=== PATIENT | female | born 1935 | race Caucasian/White ===

== ENCOUNTER 2018-06-05 13:35 | Inpatient (IN) | payer OTHER ==
--- NOTE | 2018-06-05 13:43 | EDPHY ---
H & P Time Seen by Provider: 06/05/18 13:40 HPI/ROS: CHIEF COMPLAINT: Left hip pain HISTORY OF PRESENT ILLNESS: 82-year-old female presents with left hip pain. She was hiking this morning, slipped and fell landing on her left hip. Immediate onset of severe left hip pain and inability to bear weight. She was eventually found by lavonne, who called 911. On EMS arrival, she was given fentanyl 50 mcg IV with significant relief in pain. She currently has moderate left hip pain. Denies other injuries. She did not hit her head; no headache or neck pain. Last food intake was at breakfast. Last fluid intake at noon. REVIEW OF SYSTEMS: complete 10 point ROS negative except as noted in the HPI - Physical Exam Exam: General Appearance: Alert, pleasant Head: Atraumatic Eyes: No conjunctival erythema, PERRLA, EOMI ENT, Mouth: no oral trauma, no bony tenderness Neck: Nontender, range of motion without pain Respiratory: No chest wall tenderness, lungs clear bilaterally Cardiovascular: Regular rate and rhythm Abdomen: Abdomen is soft and nontender Skin: No lacerations, no abrasions Back: No midline T/L/S tenderness Extremities: Pelvis is stable and nontender; left hip tenderness and swelling, pain with hip range of motion, left foot is externally rotated Vascular: Pedal pulses 2+ Neurological: A&Ox3, normal motor function, normal sensory exam, cranial nerves intact Psychiatric: Mood and affect normal Constitutional: Initial Vital Signs Temperature (C) 36.7 C 06/05/18 13:52 Heart Rate 84 06/05/18 13:52 Respiratory Rate 16 06/05/18 13:52 Blood Pressure 176/71 H 06/05/18 13:52 O2 Sat (%) 98 06/05/18 13:52 O2 Delivery Mode Room Air O2 (L/minute) 2 Allergies/Adverse Reactions: tree nut [Nuts] Allergy (Verified 06/05/18 13:57) Home Medications: Medication Instructions Recorded NK [No Known Home Meds] 06/05/18 Medical Decision Making - Diagnostics Imaging Results: Imaging Impressions Chest X-Ray 06/05/18 13:39 Impression: Negative. 2. Left Hip, 2 views History: Fall today. Pain. Findings: There is an acute intertrochanteric left hip fracture without significant angulation or displacement. The pelvic ring is intact. The SI joints pubic symphysis and right hip joint look normal. The bones appear of relatively low bone density. There is degenerative change of the L4-L5 disk space. Impression: 1. Left intertrochanteric hip fracture. 2. Possible osteoporosis. This patient might benefit from a DEXA scan. 3. Left Femur, 2 views of the lower femur History: Pain post fall today Findings: The distal femur is normal. The knee joint is grossly normally aligned. There is chondrocalcinosis of the medial meniscus. Impression: Nothing acute identified in the lower femur. Femur X-Ray 06/05/18 13:39 Impression: Negative. 2. Left Hip, 2 views History: Fall today. Pain. Findings: There is an acute intertrochanteric left hip fracture without significant angulation or displacement. The pelvic ring is intact. The SI joints pubic symphysis and right hip joint look normal. The bones appear of relatively low bone density. There is degenerative change of the L4-L5 disk space. Impression: 1. Left intertrochanteric hip fracture. 2. Possible osteoporosis. This patient might benefit from a DEXA scan. 3. Left Femur, 2 views of the lower femur History: Pain post fall today Findings: The distal femur is normal. The knee joint is grossly normally aligned. There is chondrocalcinosis of the medial meniscus. Impression: Nothing acute identified in the lower femur. Hip X-Ray 06/05/18 13:39 Impression: Negative. 2. Left Hip, 2 views History: Fall today. Pain. Findings: There is an acute intertrochanteric left hip fracture without significant angulation or displacement. The pelvic ring is intact. The SI joints pubic symphysis and right hip joint look normal. The bones appear of relatively low bone density. There is degenerative change of the L4-L5 disk space. Impression: 1. Left intertrochanteric hip fracture. 2. Possible osteoporosis. This patient might benefit from a DEXA scan. 3. Left Femur, 2 views of the lower femur History: Pain post fall today Findings: The distal femur is normal. The knee joint is grossly normally aligned. There is chondrocalcinosis of the medial meniscus. Impression: Nothing acute identified in the lower femur. Imaging: I viewed and interpreted images myself ED Course/Re-evaluation: This pt presents with left hip pain, consistent with likely hip fracture. No other injuries on exam. Morphine 4 mg IV given with adequate pain relief. Xray reveals a left intratrochanteric hip fracture. Hospitalist service was consulted for admission. Dr. Jefferson was consulted and will see the pt in the ED. PT NPO throughout ED stay. Went directly to OR. Differential Diagnosis: Differential diagnosis includes though it is not limited to fracture, intracranial hemorrhage, pneumothorax, hemothorax, intra-abdominal hemorrhage. - Data Points Laboratory Results: Laboratory Results 06/05/18 14:40 06/05/18 14:40 06/05/18 06/05/18 14:40 14:40 WBC REJ RBC REJ Hgb REJ Hct REJ MCV REJ MCH REJ MCHC REJ RDW REJ Plt Count REJ MPV REJ Neut % (Auto) REJ Lymph % (Auto) REJ Plumas % (Auto) REJ Eos % (Auto) REJ Baso % (Auto) REJ Nucleat RBC Rel Count REJ Absolute Neuts (auto) REJ Absolute Lymphs (auto) REJ Absolute Monos (auto) REJ Absolute Eos (auto) REJ Absolute Basos (auto) REJ Absolute Nucleated RBC REJ Immature Gran % REJ Immature Gran # REJ Sodium 133 mEq/L L mEq/L (135-145) Potassium 4.9 mEq/L mEq/L (3.5-5.2) Chloride 102 mEq/L mEq/L (97-110) Carbon Dioxide 21 mEq/l L mEq/l (22-31) Anion Gap 10 mEq/L mEq/L (6-14) BUN 17 mg/dL mg/dL (7-23) Creatinine 0.7 mg/dL mg/dL (0.6-1.0) Estimated GFR > 60 Glucose 105 mg/dL H mg/dL (70-100) Calcium 10.1 mg/dL mg/dL (8.5-10.4) Specimen Hemolysis 123 Medications Given: Morphine Sulfate (Morphine) 4 mg IVP Q1H PRN PRN Reason: Pain, Severe Unable to Take PO Last Admin: 06/05/18 14:10 Dose: 4 mg Discontinued Medications Famotidine (Pepcid) 20 mg PO ONCALL ONE Stop: 06/05/18 15:43 Last Admin: 06/05/18 16:19 Dose: 20 mg Cefazolin Sodium/Dextrose (Ancef) 100 mls @ 200 mls/hr IV ONCALL ONE PRN Reason: Protocol Stop: 06/05/18 16:11 Last Admin: 06/05/18 16:33 Dose: 100 mls Tranexamic Acid 1,000 mg/ (Sodium Chloride) 110 mls @ 660 mls/hr IV ONCALL ONE Stop: 06/05/18 15:51 Last Admin: 06/05/18 17:14 Dose: 110 mls Departure - Departure Disposition: [facility] Inpatient Acute Clinical Impression: Fracture of left hip Qualifiers: Encounter type: initial encounter Fracture type: closed Qualified Code(s): S72.002A - Fracture of unspecified part of neck of left femur, initial encounter for closed fracture Condition: Fair
[2018-06-05] MEDS ORDERED: ONDANSETRON 4 MG/2 ML VIAL ONE ×2 (14:08→16:26)
[2018-06-05] MEDS ORDERED: ONDANSETRON DISINTEGRATING 4 MG TAB PO PRN (15:31)
[2018-06-05] MEDS ORDERED: ONDANSETRON 4 MG/2 ML VIAL IVP PRN ×2 (15:31→17:12)
[2018-06-05] MEDS ORDERED: HYDROmorphONE/DILAUDID 1 MG/ML INJ IVP PRN (15:31)
--- NOTE | 2018-06-05 15:38 | PDGENHP ---
History and Physical - Chief Complaint Mechanical fall w/injury - History of Present Illness 82 y/o female who is relatively healthy presents w/ left hip pain. [facility] where she encountered uneven terrain and slipped, landing directly on her left hip. She did not hit her head, no LOC. She immediately experienced pain and was unable to bear weight on her leg. She was brought in by ambulance. Imaging revealing left intertrochanteric hip fracture. She will undergo surgical intervention today. Denies CP, palpitations, nausea, SOB, fever or chills. History Information - Allergies/Home Medication List Allergies/Adverse Reactions: tree nut [Nuts] Allergy (Verified 06/05/18 13:57) Home Medications: NK [No Known Home Meds] 06/05/18 [Last Taken Unknown] I have personally reviewed and updated: family history, medical history, social history, surgical history - Past Medical History no pertinent PMH Additional medical history: Hodgkin's (at age ~30). Breast cancer () - Surgical History Reports: cancer surgery (For Hodgkin's disease in her 30s.), mastectomy (Left (~ )) - Family History Positive for: non-pertinent - Social History Smoking Status: Never smoked Alcohol Use: Occasionally (A glass of wine/night) Drug Use: None Additional social history: Very active, lives independently. Loves to hiLivekick and Surgient. Daughter lives in [place] and was at bedside. Review of Systems Review of Systems: ROS: 10pt was reviewed & negative except for what was stated in HPI & below Physical Exam Physical Exam: Lab data and imaging were reviewed. WBC: 11.49 Na: 133 BUN/Cr: 17/0.7 CXR: negative Temp Pulse Resp BP Pulse Ox 36.7 C 84 16 176/71 H 95 06/05/18 13:52 06/05/18 13:52 06/05/18 13:52 06/05/18 13:52 06/05/18 14:29 Constitutional: uncomfortable Eyes: PERRL, anicteric sclera, EOMI Ears, Nose, Mouth, Throat: moist mucous membranes, hearing normal, ears appear normal, no oral mucosal ulcers Cardiovascular: regular rate and rhythym, no murmur, rub, or gallop, No edema Peripheral Pulses: 2+: dorsalis-pedis (R) (Radial 2+), dorsalis-pedis (L) ( Radial 2+) Respiratory: no respiratory distress, no rales or rhonchi, clear to auscultation Gastrointestinal: normoactive bowel sounds, soft, non-tender abdomen, no palpable masses Genitourinary: no bladder fullness, no bladder tenderness Skin: abrasion (Left forearm/elbow) Musculoskeletal: pain with ROM (LLE, able to wiggle toes, +DF/PF and continues to have full sensation) Neurologic: AAOx3, sensation intact bilaterally, CN II-XII Intact Psychiatric: interacting appropriately, not anxious, not encephalopathic, thought process linear Lymph, Heme, Immunologic: no cervical LAD, no supraclavicular LAD Lab Data & Imaging Review 06/05/18 15:35 06/05/18 14:40 WBC REJ 06/05/18 14:40 RBC REJ 06/05/18 14:40 Hgb REJ 06/05/18 14:40 Hct REJ 06/05/18 14:40 MCV REJ 06/05/18 14:40 MCH REJ 06/05/18 14:40 MCHC REJ 06/05/18 14:40 RDW REJ 06/05/18 14:40 Plt Count REJ 06/05/18 14:40 MPV REJ 06/05/18 14:40 Neut % (Auto) REJ 06/05/18 14:40 Lymph % (Auto) REJ 06/05/18 14:40 Plumas % (Auto) REJ 06/05/18 14:40 Eos % (Auto) REJ 06/05/18 14:40 Baso % (Auto) REJ 06/05/18 14:40 Nucleat RBC Rel Count REJ 06/05/18 14:40 Absolute Neuts (auto) REJ 06/05/18 14:40 Absolute Lymphs (auto) REJ 06/05/18 14:40 Absolute Monos (auto) REJ 06/05/18 14:40 Absolute Eos (auto) REJ 06/05/18 14:40 Absolute Basos (auto) REJ 06/05/18 14:40 Absolute Nucleated RBC REJ 06/05/18 14:40 Immature Gran % REJ 06/05/18 14:40 Immature Gran # REJ 06/05/18 14:40 Sodium 133 mEq/L (135-145) L 06/05/18 14:40 Potassium 4.9 mEq/L (3.5-5.2) 06/05/18 14:40 Chloride 102 mEq/L (97-110) 06/05/18 14:40 Carbon Dioxide 21 mEq/l (22-31) L 06/05/18 14:40 Anion Gap 10 mEq/L (6-14) 06/05/18 14:40 BUN 17 mg/dL (7-23) 06/05/18 14:40 Creatinine 0.7 mg/dL (0.6-1.0) 06/05/18 14:40 Estimated GFR > 60 06/05/18 14:40 Glucose 105 mg/dL (70-100) H 06/05/18 14:40 Calcium 10.1 mg/dL (8.5-10.4) 06/05/18 14:40 Specimen Hemolysis 123 06/05/18 14:40 Assessment & Plan Plan: 82 y/o female w/no pertinent PMH presents after suffering a fall and subsequently fracturing her left hip. Hemodynamically stable w/vitals BP 176/71 , HR 84, Resp 16, 36.7c, 98% RA. #Left hip fracture -Ortho consulted and Dr. Sosa at bedside discussing risks and benefits of surgical intervention. Surgical intervention later this afternoon. NPO for the time being. May transition to regular diet after procedure. -Pain management PO/IVP PRN; received Fentanyl 50 mcg in ambulance and 1mg IVP Morphine in ED -PT/OT to evaluate and treat -Leukocytosis (11.49); I suspect this is reactive to trauma and not infectious. Afebrile. Will monitor and check CBC in AM. #Mild hyponatremia: (133) asymptomatic. Cont to monitor. Will check BMP in AM. #Breast cancer s/p left mastectomy: in remission. Surgical intervention took place sometime in 1979. Diet: NPO now for surgery, regular diet s/p Code: Full VTE ppx: Ortho team will recommend s/p procedure Dispo: Admit to inpatient, most likely will need rehab
[2018-06-05] MEDS ORDERED: TRANEXAMIC ACID 1,000 MG in NS 100 ML IV ONE (15:42)
[2018-06-05] MEDS ORDERED: ceFAZolin 2 GM/DEXTROSE 100 ML IV ONE (15:42)
[2018-06-05] MEDS ORDERED: FAMOTIDINE 20 MG TAB PO ONE (15:42)
[2018-06-05 15:46] LABS: PLATELET COUNT 351 10^3/uL (150-400)
[2018-06-05] MEDS ORDERED: BUPIVACAINE/EPI 0.5% 30 ML SDV ONE (15:47)
[2018-06-05] MEDS ORDERED: POLYMYXIN B SULFATE 500,000 UNIT/10 ML SYR IRR ONE (15:48)
[2018-06-05] MEDS ORDERED: BACITRACIN 50,000 UNITS/10 ML SYR IRR ONE (15:48)
--- NOTE | 2018-06-05 16:18 | PDMN ---
Medical Necessity Medical necessity: MCG: S615 hip fx , open repair ( pending) 82 yo F with fall found to have L introchanteric hip fx.
--- NOTE | 2018-06-05 16:24 | PDANEPAE ---
ANE Past Medical History - Cardiovascular History Hx Hypertension: No Hx Arrhythmias: No Hx Chest Pain: No Hx Coronary Artery / Peripheral Vascular Disease: No Hx CHF / Valvular Disease: No Hx Palpitations: No - Pulmonary History Hx COPD: No Hx Asthma/Reactive Airway Disease: No Hx Recent Upper Respiratory Infection: No Hx Oxygen in Use at Home: No Hx Sleep Apnea: No - Endocrine History Hx Diabetes: No Hypothyroid: No Hyperthyroid: No Obesity: no - Renal History Hx Renal Disorders: No - Liver History Hx Hepatic Disorders: No - Neurological & Psychiatric Hx Hx Neurological and Psychiatric Disorders: No - Cancer History Hx Cancer: Yes Cancer History Comment: H/O lymphoma & breast CA - GI History GERD: no Hx Gastrointestinal Disorders: No - Surgical History Prior Surgeries: laparotomy. L breast lumpectomy ANE Review of Systems Review of Systems: - Exercise capacity Exercise capacity: >=4 METS, limited by disability ANE Patient History - Allergies Allergies/Adverse Reactions: tree nut [Nuts] Allergy (Verified 06/05/18 13:57) - Home Medications Home Medications: NK [No Known Home Meds] 06/05/18 [Last Taken Unknown] - NPO status NPO Since - Liquids (Date): 06/05/18 NPO Since - Liquids (Time): 07:30 NPO Since - Solids (Date): 06/05/18 NPO Since - Solids (Time): 07:30 - Anes Hx Anes Hx: no prior problems - Smoking Hx Smoking Status: Never smoked Marijuana use: No - Alcohol Use Alcohol Use: Occasionally (A glass of wine/night) - Family Anes Hx Family Anes Hx: neg - N/A ANE Labs/Vital Signs - Labs Result Diagrams: 06/05/18 15:35 06/05/18 14:40 - Vital Signs Blood Pressure: 155/87 Heart Rate: 76 Respiratory Rate: 16 O2 Sat (%): 97 Height: 165.1 cm Weight: 58.967 kg ANE Physical Exam - Airway Neck exam: FROM Mallampati Score: Class 3 Mouth exam: normal dental/mouth exam - Pulmonary Pulmonary: no respiratory distress, no rales or rhonchi, clear to auscultation - Cardiovascular Cardiovascular: regular rate and rhythym, no murmur, rub, or gallop - ASA Status ASA Status: II ANE Anesthesia Plan Anesthesia Plan: general endotracheal anesthesia Total IV Anesthesia: No
[2018-06-05] MEDS ORDERED: fentaNYL 100 MCG/2 ML INJ ONE ×2 (16:26→18:09)
[2018-06-05] MEDS ORDERED: DEXAMETHASONE 4 MG/ML VIAL ONE (16:26)
[2018-06-05] MEDS ORDERED: PROPOFOL 200 MG/20 ML VIAL ONE (16:26)
[2018-06-05] MEDS ORDERED: ROCURONIUM 50 MG/5 ML VIAL ONE (16:26)
[2018-06-05] MEDS ORDERED: LIDOCAINE 2% 2 ML INJ ONE ×2 (16:30)
[2018-06-05] MEDS ORDERED: REMIFENTANIL HCL 1 MG VIAL ONE (16:41)
[2018-06-05] MEDS ORDERED: PROPOFOL/EMULSION 500 MG/50 ML BOTTLE IV ONE (16:42)
[2018-06-05] MEDS ORDERED: ePHEDrine SULFATE 25 MG/5 ML SYR ONE (16:56)
[2018-06-05] MEDS ORDERED: LR 500 ML IV PRN (17:12)
[2018-06-05] MEDS ORDERED: HYDROCODONE/APAP 5/325 TAB PO PRN (17:12)
[2018-06-05] MEDS ORDERED: PHENYLEPHRINE HCL 100 MCG/ML SYR IVP PRN (17:12)
[2018-06-05] MEDS ORDERED: LABETALOL HCL 5 MG/ML 20 ML MDV IVP PRN (17:12)
[2018-06-05] MEDS ORDERED: PROMETHAZINE HCL 25 MG/ML INJ IVP PRN ×2 (17:12→18:09)
[2018-06-05] MEDS ORDERED: NALOXONE HCL 0.4 MG/ML INJ IVP PRN (17:12)
[2018-06-05] MEDS ORDERED: ACETAMINOPHEN 500 MG TAB PO PRN (17:12)
[2018-06-05] MEDS: TRANEXAMIC ACID 1,000 MG in NS 100 ML IV ONE ×2 (17:14→18:03)
--- NOTE | 2018-06-05 17:28 | CPEKG ---
Test Reason : OPEN Blood Pressure : / mmHG Vent. Rate : 075 BPM Atrial Rate : 075 BPM P-R Int : 152 ms QRS Dur : 098 ms QT Int : 391 ms P-R-T Axes : 068 -21 039 degrees QTc Int : 437 ms Sinus rhythm Borderline left axis deviation Confirmed by Tesha Márquez ([id number]) on 06/05/2018 5:27:36 PM Referred By: Tesha Márquez Confirmed By:Tesha Márquez
[2018-06-05] MEDS ORDERED: NEOSTIGMINE METHYLSULFATE 5 MG/5 ML SYR ONE (17:39)
[2018-06-05] MEDS ORDERED: GLYCOPYRROLATE 0.2 MG/1 ML VIAL ONE ×4 (17:40)
--- NOTE | 2018-06-05 17:40 | GCON ---
[f rep st] CONSULTATION ORTHOPEDIC CONSULTATION CHIEF COMPLAINT: Left hip pain, inability to weightbear. HISTORY OF PRESENT ILLNESS: An 82-year-old female who was hiking today with her dog and slipped on s ome loose gravel, fell directly onto her left lateral hip. She was unable to weightbear. She was br ought to the emergency department. X-rays revealed an intertrochanteric left hip fracture. She allyson es loss of consciousness pre or post injury. Denies any head trauma. Denies fevers, chills, nausea, vomiting, chest pain, shortness of breath, numbness or tingling. PAST MEDICAL HISTORY: Significant for Hodgkin lymphoma, approximately 30 years ago. Breast cancer s tatus post mastectomy, 1988. REVIEW OF SYSTEMS: A 12-point review of systems is negative except for HPI. She has taken ibuprofen for some ischial bursitis which has upset her stomach within the last 3 weeks. She also received a cortisone injection for this 3 weeks ago. MEDICATIONS: None. ALLERGIES: Includes tree nuts. PAST SURGICAL HISTORY: As above. VITAL SIGNS: Blood pressure 155/87, heart rate 76, respiration rate 16, O2 saturation 97% on 2 L, 36 .7 degree temperature. LABORATORY VALUES: White blood cell count 11.5, hemoglobin 13. PHYSICAL EXAMINATION: GENERAL: Awake, alert, and oriented x3, no acute distress. LUNGS: Easy nonl abored breathing. LEFT LOWER EXTREMITY: Shortened and externally rotated. Pain with attempts at log roll and lateral palpation of the greater trochanter. Motor intact to EHL, FHL, tibialis anterior, gastrocsoleus. Se nsation intact to light touch in L4-S1. Her compartments are soft and compressible. She has palpabl e DP and PT pulses. IMAGING: X-rays revealed a left displaced intertrochanteric hip fracture. ASSESSMENT/PLAN: An 82-year-old female with left intertrochanteric hip fracture. We discussed treat ment options including operative and nonoperative; I recommend operative fixation. All the risks and benefits of the procedure were described to the patient, which included, but are not limited to, ble eding, infection, damage to surrounding anatomic structures specifically with this procedure, malunio n, nonunion, hardware failure, symptomatic hardware, persistent lateral hip pain and arthritis. She understands and agrees with this treatment plan. She has signed her informed consent and wishes to p gavi. /[id number]/MODL
[2018-06-05] MEDS ORDERED: BISACODYL 10 MG SUPP PR PRN (18:09)
[2018-06-05] MEDS ORDERED: DIPHENOXYLATE/ATROPINE LOMOTIL 1 TAB PO PRN (18:09)
[2018-06-05] MEDS ORDERED: LACTULOSE 20 GM/30 ML UDCUP PO PRN (18:09)
[2018-06-05] MEDS ORDERED: MAGNESIUM HYDROXIDE 30 ML UDCUP PO PRN (18:09)
[2018-06-05] MEDS ORDERED: METOCLOPRAMIDE 10 MG/2 ML VIAL IVP PRN (18:09)
[2018-06-05] MEDS ORDERED: diphenhydrAMINE 25 MG CAP PO PRN (18:09)
[2018-06-05] MEDS: fentaNYL 100 MCG/2 ML INJ IVP PRN ×3 (18:11→18:25)
--- NOTE | 2018-06-05 18:12 | POSTANESTH ---
Post Anesthetic Evaluation Cardiovascular Status: Similar to Pre-Op Cond Respiratory Status: Normal, Stable Level of Consciousness/Mental Status: Can Participate in Eval Pain Control: Adequate, Prn Tx Ordered Nausea/Vomiting Control: Adequate, Prn Tx Ordered Complications Possibly Related to Anesthesia: None Noted
[2018-06-05] MEDS ORDERED: oxyCODONE IR 5 MG TAB ONE (18:16)
[2018-06-05] MEDS: oxyCODONE IR 5 MG TAB PO PRN ×2 (18:17→19:05)
[2018-06-05] MEDS ORDERED: LR 1,000 ML IV SCH (18:30)
[2018-06-05] MEDS: ACETAMINOPHEN 325 MG TAB PO PRN (20:23)
[2018-06-05] MEDS: FAMOTIDINE 20 MG TAB PO SCH (20:24)
[2018-06-05] MEDS: CYCLOBENZAPRINE 10 MG TAB PO PRN (20:24)
[2018-06-05] MEDS: SENNOSIDES/DOCUSATE SODIUM TAB PO SCH (20:24)
[2018-06-05] MEDS: TEMAZEPAM 15 MG CAP PO PRN (21:48)
[2018-06-06] MEDS: ceFAZolin 2 GM/DEXTROSE 100 ML IV SCH ×2 (00:10→08:14)
[2018-06-06 05:14] LABS: PLATELET COUNT 277 10^3/uL (150-400)
--- NOTE | 2018-06-06 07:53 | POSTOPPROG ---
Post Op Note Date of Operation: 06/06/18 Surgeon: Prasanna Sosa Tele Marketing Executive: MARIBELL Cai Anesthesiologist: DO Sean Anesthesia: GET(General Endotracheal) Pre-op Diagnosis: Left IT hip fx Post-op Diagnosis: same Procedure: Left hip CR, CMN fixation Inf/Abcess present in the surg proc area at time of surgery?: No EBL: 50-100
--- NOTE | 2018-06-06 07:56 | SOAPPROG ---
SOAP Progress Note Assessment/Plan: Assessment: Postop day 1 status post left hip closed reduction cephalomedullary nail fixation Plan: Weightbear as tolerated with PT Analgesics as needed DVT prophylaxis: Xarelto 10 mg x3 weeks Disposition: Likely will require subacute rehab as the patient lives alone 06/06/18 07:53 Subjective: No acute events. Pain well controlled. Denies fevers chills nausea vomiting chest pain shortness of breath numbness or tingling Objective: Vital Signs Temp Pulse Resp BP Pulse Ox 36.6 C 67 18 106/47 L 94 06/06/18 07:47 06/06/18 07:47 06/06/18 07:47 06/06/18 07:47 06/06/18 07:47 Laboratory Results 06/06/18 04:58 06/06/18 04:58 06/05/18 06/06/18 06/07/18 05:59 05:59 05:59 Intake Total 2025 Output Total 925 Balance 1100 Awake alert and oriented x3 Easy nonlabored breathing Left hip: Dressing joint no erythema drainage or signs of infection Thigh and calf compartments soft compressible Sensation intact to light touch L4-S1 Motor intact EHL FHL tibialis anterior gastrocsoleus Palpable DP PT pulses ICD10 Worksheet Patient Problems: Problems Problem Status Onset Fracture of left hip Acute
[2018-06-06] MEDS: SENNOSIDES/DOCUSATE SODIUM TAB PO SCH ×2 (08:16→19:57)
[2018-06-06] MEDS: RIVAROXABAN 10 MG TAB PO SCH (08:17)
[2018-06-06] MEDS: FAMOTIDINE 20 MG TAB PO SCH ×2 (08:17→19:57)
[2018-06-06] MEDS: ACETAMINOPHEN 325 MG TAB PO PRN (08:36)
--- NOTE | 2018-06-06 11:07 | HOSPPROG ---
Hospitalist Progress Note Assessment/Plan: 82 y/o female w/no pertinent PMH presents after suffering a fall and subsequently fracturing her left hip. First encounter, chart reviewed. *Left hip fracture -status post left hip closed reduction & nail fixation -PT and OT *Leukocytosis -stress reaction *HTN -noted on admission -resolved *Hyponatremia -Na decreased to 129 -will follow, check urine studies *hyperglycemia -likely stress induced *anemia -expected post op #Breast cancer s/p left mastectomy: in remission. *DVT prophylaxis: Xarelto *plan: barnes removal, stop fluids, recheck labs in a.m, check urine studies Subjective: Rosario said her pain is well managed, able to walk to the bathroom this morning Objective: Vital Signs Temp Pulse Resp BP Pulse Ox 36.6 C 67 18 106/47 L 94 06/06/18 07:47 06/06/18 07:47 06/06/18 07:47 06/06/18 07:47 06/06/18 07:47 Laboratory Results 06/06/18 04:58 06/06/18 04:58 06/05/18 06/06/18 06/07/18 05:59 05:59 05:59 Intake Total 5 675 Output Total 925 Balance 1100 675 - Physical Exam Constitutional: no apparent distress, appears nourished, not in pain Eyes: PERRL Ears, Nose, Mouth, Throat: hearing normal Cardiovascular: regular rate and rhythym, no murmur, rub, or gallop Respiratory: no respiratory distress Skin: warm, other (left hip w some swelling) Neurologic: AAOx3 Psychiatric: interacting appropriately ICD10 Worksheet Patient Problems: Problems Problem Status Onset Fracture of left hip Acute
--- NOTE | 2018-06-06 15:18 | GOP ---
[f rep st] OPERATIVE REPORT DATE OF OPERATION: 06/05/2018 SURGEON: Prasanna Sosa MD ANESTHESIA: General. PREOPERATIVE DIAGNOSIS: Left intertrochanteric hip fracture. POSTOPERATIVE DIAGNOSIS: Left intertrochanteric hip fracture. PROCEDURE PERFORMED: Left hip closed reduction and cephalomedullary nailing. FINDINGS: SPECIMENS: None. ESTIMATED BLOOD LOSS: 100 cc. INDICATIONS: The patient slipped and fell while hiking, falling on her left side, sustaining the abo ve fracture. Treatment options were discussed, including operative and nonoperative. Risks and bene fits of surgery were discussed including malunion, nonunion, symptomatic hardware, hardware failure, femoral head osteonecrosis, and continued lateral hip pain, as well as increased morbidity and mortal ity given the nature of the fracture. The patient and daughter verbalized understanding of the risks and benefits of the procedure, and signed informed consent. DESCRIPTION OF PROCEDURE: The patient was taken to the holding area. Operative site and consent wer e signed. She was then taken to the operating room. After smooth induction of general anesthesia, t he patient was placed supine on the fracture table. The left hip and lower extremity were prepped an d draped in the usual sterile fashion. Operative site was confirmed by signature. Timeout performed . Allergies reviewed. Antibiotics and TXA were administered prior to prepping and draping. Reducti on of the fracture was confirmed non-sterilely with fluoroscopic guidance. The desired incision was infiltrated with 0.25% Marcaine with epinephrine. An oblique longitudinal incision was made proximal to the greater trochanter through the skin and soft tissues, followed by incision through the tensor fascia joanna. Blunt finger dissection was made down onto the greater trochanter. A guide pin was pl aced at the tip of the greater trochanter, and this was confirmed to be center-center on AP and later al fluoroscopy. Entry reamer was then placed through the greater trochanter down to the level of the lesser trochanter. A 12 mm short TFN was placed through the entry hole, and depth was confirmed und er fluoroscopy. Next, the location of the lag screw was inserted. Insertion site on the skin was marked and infiltra crystal with Marcaine. A 10 blade was used through the skin and IT band. Blunt dissection was made down to the bone. A trocar was then inserted through the aiming arm guide down to the lateral aspect of the femur. A guide pin was then placed laterally through the cortex of the femur, up through the nec k and the head. Adequate and accurate placement of this pin was confirmed under AP and lateral fluor oscopy. The guide pin was then over-reamed and tapped, and measured to be 100 mm in length. A lag s crew was then placed through the aiming arm into the femoral head and neck. Adequate and accurate pl acement was confirmed under fluoroscopy on AP and lateral views. A compression bolt was then placed and used to compress across the fracture site. This was then dynamically locked. The distal locking screw was then placed through the distal aspect of the cephalomedullary device and was measured to b e 38 mm in length, confirmed on fluoroscopy. The aiming arm was then removed, and anatomic reduction was achieved. Final x-rays were taken, both AP and lateral x-rays. The wound was copiously irrigat ed. The fascia was closed with 0 Vicryl, the subcutaneous tissue with 2-0 Vicryl, and the skin with 3-0 Monocryl. Dressings consisted of Dermabond, Steri-Strips, and Mepilex. At the end of the case, all surgical counts were correct. The patient was safely awakened, extubated, and taken to the [facility] in stable condition. All critical portions of the procedure were performed by , Dr. Sosa. This operative note was created by , and I was immediately available for emergency cross-coverage at all times. IMPLANTS: Include a Synthes 12 mm diameter trochanteric fixation nail with a 100 mm lag screw and a 38 mm distal locking screw. /[id number]/MODL
--- NOTE | 2018-06-06 16:25 | ASMTCMCOM ---
CM Note CM Note Notes: Pt is s/p L hip TFN after sustaining a hip fx while hiking. She lives alone in [place] in a multilevel house. She is agreeable to a SNF d/c. Discussed SNF options in [place] with her and her daughter. Provided 3 options for SNFs in [place]. Daughter willl look into them and let us know their decision. Pt still needs her 3 midnight stay. Pt's insurance information (Medicare and supplement) were copied and sent to Admissions. CM will continue to follow. D/C plan: SNF in [place] Date Signed: 06/06/2018 04:24 PM Electronically Signed By:MALDONADO German
[2018-06-06] MEDS: TEMAZEPAM 15 MG CAP PO PRN (22:40)
[2018-06-06] MEDS: CYCLOBENZAPRINE 10 MG TAB PO PRN (22:40)
[2018-06-07] MEDS: oxyCODONE IR 5 MG TAB PO PRN ×4 (04:48→20:33)
[2018-06-07] MEDS: ACETAMINOPHEN 325 MG TAB PO PRN ×4 (04:49→20:32)
--- NOTE | 2018-06-07 07:31 | SOAPPROG ---
SOAP Progress Note Assessment/Plan: Assessment: Postop day 2 status post left hip closed reduction cephalomedullary nail fixation Plan: Weightbear as tolerated with PT/OT Analgesics as needed DVT prophylaxis: Xarelto 10 mg x3 weeks Disposition: Likely will require subacute rehab as the patient lives alone 06/06/18 07:53 06/07/18 07:30 Subjective: No acute events. Pain well controlled yesterday. Having slightly more pain after physical therapy yesterday. Denies fevers chills nausea vomiting chest pain shortness of breath numbness or tingling Objective: Vital Signs Temp Pulse Resp BP Pulse Ox 36.7 C 76 16 112/51 L 92 06/06/18 23:23 06/06/18 23:23 06/06/18 23:23 06/06/18 23:23 06/06/18 23:23 Laboratory Results 06/07/18 05:00 06/07/18 05:00 06/06/18 06/07/18 06/08/18 05:59 05:59 05:59 Intake Total 5 975 Output Total 925 1600 Balance 1100 -625 Awake alert and oriented x3 Easy nonlabored breathing Left hip: Dressing joint no erythema drainage or signs of infection Thigh and calf compartments soft compressible Sensation intact to light touch L4-S1 Motor intact EHL FHL tibialis anterior gastrocsoleus ICD10 Worksheet Patient Problems: Problems Problem Status Onset Fracture of left hip Acute
[2018-06-07] MEDS: RIVAROXABAN 10 MG TAB PO SCH (08:45)
[2018-06-07] MEDS: FAMOTIDINE 20 MG TAB PO SCH ×2 (08:46→20:32)
[2018-06-07] MEDS: POLYETHYLENE GLYCOL 3350 17 GM PKT PO PRN (08:46)
[2018-06-07] MEDS: SENNOSIDES/DOCUSATE SODIUM TAB PO SCH ×2 (08:46→20:32)
--- NOTE | 2018-06-07 13:43 | HOSPPROG ---
Hospitalist Progress Note Assessment/Plan: 82 y/o female w/no pertinent PMH presents after suffering a fall and subsequently fracturing her left hip. *Left hip fracture -status post left hip closed reduction & nail fixation -PT and OT *Leukocytosis -stress reaction *HTN -noted on admission -resolved *Hyponatremia -much improved *hyperglycemia -likely stress induced *anemia -expected post op #Breast cancer s/p left mastectomy: in remission. *DVT prophylaxis: Xarelto *plan: dc to rehab poss tomorrow pending authorization. Subjective: Rosario is feeling well, pain is well managed. Objective: Vital Signs Temp Pulse Resp BP Pulse Ox 36.6 C 72 14 117/53 L 94 06/07/18 12:08 06/07/18 12:08 06/07/18 12:08 06/07/18 12:08 06/07/18 12:08 Laboratory Results 06/07/18 05:00 06/07/18 05:00 06/06/18 06/07/18 06/08/18 05:59 05:59 05:59 Intake Total 5 975 200 Output Total 925 1600 575 Balance 9871 -382 -375 - Physical Exam Constitutional: no apparent distress, appears nourished, not in pain Eyes: PERRL Ears, Nose, Mouth, Throat: hearing normal Cardiovascular: regular rate and rhythym Respiratory: no respiratory distress Skin: warm Musculoskeletal: generalized weakness Neurologic: AAOx3 Psychiatric: interacting appropriately ICD10 Worksheet Patient Problems: Problems Problem Status Onset Fracture of left hip Acute
[2018-06-07] MEDS: CYCLOBENZAPRINE 10 MG TAB PO PRN (20:32)
[2018-06-08] MEDS: ACETAMINOPHEN 325 MG TAB PO PRN ×2 (04:55→08:53)
[2018-06-08 08:32] VITALS: BP 120/56
[2018-06-08] MEDS: SENNOSIDES/DOCUSATE SODIUM TAB PO SCH (08:50)
[2018-06-08] MEDS: POLYETHYLENE GLYCOL 3350 17 GM PKT PO PRN (08:50)
[2018-06-08] MEDS: oxyCODONE IR 5 MG TAB PO PRN (08:50)
[2018-06-08] MEDS: FAMOTIDINE 20 MG TAB PO SCH (08:51)
[2018-06-08] MEDS: RIVAROXABAN 10 MG TAB PO SCH (08:51)
[2018-06-08] MEDS ORDERED: oxyCODONE IR 5 MG TAB PO PRN (09:31)
--- NOTE | 2018-06-08 12:28 | ASMTDCNOTE ---
Case Management Discharge Discharge Order Complete? Answers: Yes Transportation Arranged Answers: Other Notes: [facility] transport Transport will Pick (Date 06/08/2018 01:00 PM & Time) Faxed Final Orders Answers: Yes Notes: via [employer] Agency/Facility Transfer Answers: Yes Notes: via [employer] Report Printed & Faxed to Receiving Agency Family Notified Answers: Yes Notes: CM Discharge Comments Notes: CM met with patient, she and daughter are choosing [facility]. CM called [facility], spoke with Radha, they can accept the patient, transport set up for 1pm. CM called daughter Kira [phone] to update her on discharge plan, voicemail answered. CM LM stating [facility] is able to accept her mom and transport has been set up for 1pm. CM informed transport & report to be called to [phone]. IM delivered, signed for reciept and placed in back of chart. CM available to follow if additional CM/Discharge needs arise. Date Signed: 06/08/2018 12:27 PM Electronically Signed By:Tatiana Adkins
--- NOTE | 2018-06-08 13:00 | ASDISCHSUM ---
Discharge Information Plan Status:SNF Medically Cleared to Leave:06/08/2018 Discharge Date:06/08/2018 12:59 PM CM D/C Disposition:[facility] ADT D/C Disposition:[facility] Projected Discharge Date:06/08/2018 11:00 AM Transportation at D/C:Wheelchair Van Discharge Delay Reason: Follow-Up Date:06/08/2018 11:00 AM Discharge Slot:2 - 12:01 pm - 18:00 pm Final Diagnosis:Left hip fracture Placement Information Referral Type:*Assisted/SNF Referral ID:[id number] Provider Name:[facility] [facility], [facility]. Address 1:[address] Address 2: City:[place] Selection Factors: State:[place] Patient Contact Information Contact Name:LEAH Relationship:Daughter Address: Work Phone: [place]: [facility] Phone: [facility]/Zip Code: Email: Financial Information Financial Class:Medicare Primary Plan Desc:MEDICARE INPATIENT Primary Plan Number:[id number] Secondary Plan Desc:[employer] Secondary Plan Number:[id number] Assessment Information [facility] CM Progress Note CM Note CM Note Notes: Pt is s/p L hip TFN after sustaining a hip fx while hiking. She lives alone in [place] in a multilevel house. She is agreeable to a SNF d/c. Discussed SNF options in [place] with her and her daughter. Provided 3 options for SNFs in [place]. Daughter willl look into them and let us know their decision. Pt still needs her 3 midnight stay. Pt's insurance information (Medicare and supplement) were copied and sent to Admissions. CM will continue to follow. D/C plan: SNF in [place] Date Signed: 06/06/2018 04:24 PM Electronically Signed By:MALDONADO German Case Management Discharge Plan Note Case Management Discharge Discharge Order Complete? Answers: Yes Transportation Arranged Answers: Other Notes: [facility] transport Transport will Pick (Date 06/08/2018 01:00 PM & Time) Faxed Final Orders Answers: Yes Notes: via [employer] Agency/Facility Transfer Answers: Yes Notes: via APR Report Printed & Faxed to Receiving Agency Family Notified Answers: Yes Notes: CM Discharge Comments Notes: CM met with patient, she and daughter are choosing [facility]. CM called [facility], spoke with Radha, they can accept the patient, transport set up for 1pm. CM called daughter Kira [phone] to update her on discharge plan, voicemail answered. CM LM stating [facility] is able to accept her mom and transport has been set up for 1pm. CM informed transport & report to be called to [phone]. IM delivered, signed for reciept and placed in back of chart. CM available to follow if additional CM/Discharge needs arise. Date Signed: 06/08/2018 12:27 PM Electronically Signed By:Tatiana Adkins Intervention Information Intervention Type:*IM-Signed Date of Service:06/08/2018 12:11 PM Patient Type:Inpatient Staff Member:Tatiana Adkins Hours: Discipline: Severity: Comment:CM explained & delivered IM, patient s igned for receipt.
[2018-06-08] MEDS ORDERED: ACETAMINOPHEN 500 MG TAB PO SCH (14:00)
--- NOTE | 2018-06-08 22:13 | GDS ---
[f rep st] DISCHARGE SUMMARY DISCHARGE DIAGNOSES: 1. Left hip fracture, status post closed reduction and nail fixation. 2. Hypertension. 3. Hyponatremia. 4. Acute blood loss anemia with a drop in hemoglobin from 13 to 10.9 postoperatively. 5. History of breast cancer, status post left mastectomy. 6. Mild hyponatremia. 7. Possible osteoporosis, patient should undergo outpatient DEXA scan. CONSULTANTS: Prasanna Sosa MD, Orthopedic Surgery. PROCEDURES: Left hip closed reduction and cephalomedullary nailing June 05, 2018, by Dr. Prasanna disla. HISTORY OF DETAILS: Please see History and Physical dated June 05, 2018. In brief, the patient is an 82-year-old female with a history of breast cancer and Hodgkin disease, who presented to the emerg ency department with left hip pain after a fall while hiking on [facility]. She was admitted to [facility] for further management. HOSPITAL COURSE: The patient was admitted to the med/surg unit. A hip x-ray performed on admission showed a left intertrochanteric hip fracture with possible osteoporosis. Orthopedic Surgery consult was obtained, and she was taken to the operating room for closed reduction and nail fixation. Her po stop course has been uncomplicated. Her pain has been fairly well controlled with Tylenol, Celebrex, and low-dose oxycodone. Her vital signs remained stable. She was evaluated by our therapy team. I t is recommended she have ongoing therapy and strengthening at [facility]. DISPOSITION: Patient is discharged to [facility] in stable condition. FOLLOWUP: Dr. Prasanna Sosa in 2 weeks. DISCHARGE MEDICATIONS: Please see [facility] for completed outpatient medication list. Medications on discharge include: 1. Tylenol 1000 mg p.o. q.8 hours. 2. Oxycodone 5 mg p.o. q.6 hours p.r.n. #10, no refills. 3. Xarelto 10 mg p.o. daily #19 for 3 weeks for DVT prophylaxis. 4. Senokot 1-2 tabs p.o. b.i.d. p.r.n. 5. MiraLAX 17 g p.o. daily p.r.n. 6. Zofran 4 mg p.o. q.4 hours p.r.n. 7. Pepcid 20 mg p.o. b.i.d. /[id number]/MODL
== END 2018-06-08 12:59 | DRG 481 ==
LOC: F3N 18:41
PROVIDERS: ADMIT Internal Medicine; ATTEND Internal Medicine
PROC: 0QS706Z Reposition Left Upper Femur with Intramedullary Internal Fixation Device, Open Approach (ICD-10-PCS; principal; 2018-06-06)
DX: S72.142A Displaced intertrochanteric fracture of left femur, initial encounter for closed fracture (principal); W18.31XA Fall on same level due to stepping on an object, initial encounter; Y93.01 Activity, walking, marching and hiking; Y92.828 Other wilderness area as the place of occurrence of the external cause; Y99.8 Other external cause status; D62 Acute posthemorrhagic anemia; E87.1 Hypo-osmolality and hyponatremia; I10 Essential (primary) hypertension; Z85.3 Personal history of malignant neoplasm of breast; Z90.12 Acquired absence of left breast and nipple; Z85.71 Personal history of Hodgkin lymphoma
CPT/HCPCS: 97110-GP; 97116-GP; 97161-GP; 97165-GO; 97535-GO; C1713; J0690; J1100; J2270; J2405; J2704; J2710; J3010